=== PATIENT | female | born 1945 | race Caucasian/White ===

== ENCOUNTER → 2018-06-22 | Outpatient (CLI) | payer MEDICARE, BC | LOC: M RAD 16:10 | DX: R12 Heartburn (principal); K44.9 Diaphragmatic hernia without obstruction or gangrene; J84.10 Pulmonary fibrosis, unspecified | CPT/HCPCS: 71250 ==

== ENCOUNTER → 2019-02-19 | Outpatient (REF) ==
[2019-02-19 14:00] LABS: ALBUMIN 2.6 GM/DL (3.2-5.2); ALT/SGPT 21 U/L (12-78); BILIRUBIN,TOTAL 0.4 MG/DL (0.2-1.0); BLOOD UREA NITROGEN 8 MG/DL (7-18); CALCIUM LEVEL 7.7 MG/DL (8.8-10.2); CARBON DIOXIDE LEVEL 31 MEQ/L (21-32); CHLORIDE LEVEL 103 MEQ/L (98-107); CREATININE FOR GFR 0.73 MG/DL (0.55-1.30); GLOMERULAR FILTRATION RATE > 60.0 (>39); GLUCOSE, FASTING 97 MG/DL (70-100); MAGNESIUM LEVEL 1.8 MG/DL (1.8-2.4); POTASSIUM SERUM 3.2 MEQ/L (3.5-5.1); SODIUM LEVEL 142 MEQ/L (136-145); TOTAL PROTEIN 5.1 GM/DL (6.4-8.2)
== END ==
LOC: M LAB REF 05:32
DX: Z00.00 Encounter for general adult medical examination without abnormal findings (principal)

== ENCOUNTER → 2021-01-30 | Outpatient (CLI) | payer MEDICARE, BC ==
--- NOTE | 2021-01-30 12:42 | REP ---
INDICATION: NICOTINE DEPEND. COMPARISON: 09/05/2019 and 01/23/2020 TECHNIQUE: Axial noncontrast images from the thoracic inlet to the upper abdomen using low-dose lung screening technique (LDCT). As per the protocol only lung window images were sent to the read station for interpretation FINDINGS: There is stable appearing biapical pleuroparenchymal scarring. There is stable fibrotic change in the left lower lobe. There is a minimal inferior lingular density. There is cylindrical bronchiectasis status quo. Limited evaluation of the mediastinum and pulmonary [place] show no gross changes. Limited evaluation of the imaged upper abdomen and imaged osseous structures show no gross changes. Note is again made of a large hiatal hernia. IMPRESSION: 1. New inferior lingular density as described above likely representing minimal subsegmental atelectatic change. 2. Other findings as described above. Lung rads category 2 exam <Electronically signed by Lucas Kahn > 01/30/21 [id number]
== END ==
LOC: M RAD 11:22
PROVIDERS: ATTEND Physician Assistant
DX: Z87.891 Personal history of nicotine dependence (principal); Z12.2 Encounter for screening for malignant neoplasm of respiratory organs

== ENCOUNTER → 2021-08-06 | Outpatient (REF) | payer MEDICARE, BC | LOC: M LAB REF 16:56 | PROVIDERS: ATTEND Internal Medicine Nephrology | DX: E83.42 Hypomagnesemia (principal) ==

== ENCOUNTER → 2021-08-16 | Outpatient (CLI) | payer MEDICARE, BC ==
--- NOTE | 2021-08-16 12:46 | REP ---
INDICATION: COPD COMPARISON: 01/30/2021, 06/22/2018 TECHNIQUE: Axial noncontrast images from the thoracic inlet to the upper abdomen with coronal and sagittal reformations. This CT examination was performed using the following dose reduction techniques: Automated exposure control, adjustment of mA and/or kv according to the patient's size, and use of iterative reconstruction technique. FINDINGS: COPD/emphysematous changes with primarily biapical and minimal basilar scarring again noted. Previously identified changes at the inferior aspect of the lingula are again noted and consistent with scarring. No acute consolidation, suspicious nodule or mass. No effusion. No pneumothorax. Tracheobronchial tree is patent. Mediastinum demonstrates large paraesophageal gastric hiatal hernia. Atherosclerotic changes to the thoracic aorta and coronary arteries again noted and essentially stable. No cardiomegaly or pericardial effusion. Nonspecific normal appearing lymph nodes to the mediastinum noted. Surrounding musculoskeletal structures are intact. Limited upper abdomen demonstrates normal bilateral adrenal glands. IMPRESSION: 1. Moderate COPD/emphysematous changes with stable scarring. 2. No acute mediastinal or pleuroparenchymal process appreciated. <Electronically signed by Levy Boswell > 08/16/21 [id number]
== END ==
LOC: M PLAIMG 11:25
PROVIDERS: ATTEND Internal Medicine Pulmonary Disease
DX: J44.9 Chronic obstructive pulmonary disease, unspecified (principal); K45.8 Other specified abdominal hernia without obstruction or gangrene

== ENCOUNTER → 2021-10-18 | Outpatient (REF) | payer MEDICARE, BC | LOC: M LAB REF 13:46 | PROVIDERS: ATTEND Nurse Practitioner Family | DX: D23.71 Other benign neoplasm of skin of right lower limb, including hip (principal) ==

== ENCOUNTER → 2021-11-07 | Outpatient (REF) | payer MEDICARE, BC | LOC: M SFHCDERM 17:20 | PROVIDERS: ATTEND Dermatology | DX: Z51.89 Encounter for other specified aftercare (principal) ==

== ENCOUNTER → 2022-03-24 | Outpatient (CLI) | payer MEDICARE, BC | LOC: M WHC 13:17 | PROVIDERS: ATTEND Nurse Practitioner Family | DX: Z13.820 Encounter for screening for osteoporosis (principal); M85.851 Other specified disorders of bone density and structure, right thigh ==

== ENCOUNTER → 2022-11-04 | Outpatient (CLI) | payer MEDICARE, BC | LOC: M RAD 13:38 | PROVIDERS: ATTEND Internal Medicine Pulmonary Disease | DX: Z87.891 Personal history of nicotine dependence (principal) ==

== ENCOUNTER 2023-09-17 08:02 | Day surgery (SDC) | payer MEDICARE, BC ==
[~2023-09-17] VITALS: Ht 162.6 cm; Wt 61.4 kg
[~2023-09-17 08:02] MED LIST: ALBU2.5V10 NEB; ALEN70TA82 PO; BIOT5TAB3 PO; BREO1INH3; BSS IRRIG/VANCO(10MG)/TOBRA(5MG)/EPINEPH(1:1000-0.5CC)500ML BAG-ORONLY IR ONE; CALCCAP4 PO; CEFUROXIME 1MG/0.1ML INTRACAMERAL INJ As Ordered ONE; CITA20TA6 PO; ERGO500029 PO; GLUCTAB7 PO; INCR1INH; LIDOCAINE 1% SDV 5ML VIAL As Ordered ONE; LIDOCAINE 3.5 % 1ML OPHTH TOPICAL GEL OU ONE; MAGN64TASA PO; OFLOXACIN 0.3 % (OCUFLOX) OPTH SOL 5ML OS ONE; OMEP40CA5 PO; PHENYLEPHRINE 10% OPHTH SOL 5ML OS PRN; POTA-141 PO; PROB1TAB2 PO; RA M500C PO; ROSU5TAB5 PO; SPIR-10 PO; VITA100018 PO
[2023-09-17] MEDS ORDERED: fentaNYL 100 MCG/2 ML INJECTION As Ordered ONE ×2 (08:30→09:21)
[2023-09-17] MEDS ORDERED: MIDAZOLAM INJ 2MG/2ML VIAL As Ordered ONE ×2 (08:30→09:21)
[2023-09-17] MEDS: CYCLOPENTOLATE 1% OPHTH SOLN 2ML BTL OS SCH ×2 (08:35→08:45)
[2023-09-17] MEDS: TROPICAMIDE 1% OPHTH SOLN 15ML OS SCH ×2 (08:35→08:45)
[2023-09-17] MEDS: PHENYLEPHRINE 2.5% OPHTH SOL 2ML OS SCH ×2 (08:35→08:45)
[2023-09-17 10:17] VITALS: BP 152/76; TEMP 98; O2SAT 98
== END 2023-09-17 10:26 | disposition home or self-care (01) ==
LOC: M SDC 08:02
PROVIDERS: ATTEND Ophthalmology
DX: H25.12 Age-related nuclear cataract, left eye (principal); E78.00 Pure hypercholesterolemia, unspecified; J44.9 Chronic obstructive pulmonary disease, unspecified; K21.9 Gastro-esophageal reflux disease without esophagitis; Z87.891 Personal history of nicotine dependence; Z79.899 Other long term (current) drug therapy; Z88.5 Allergy status to narcotic agent; Z88.1 Allergy status to other antibiotic agents; Z90.49 Acquired absence of other specified parts of digestive tract
CPT/HCPCS: 66984; 92015; J0697; J2250; J3010; V2788

== ENCOUNTER 2023-10-29 12:03 | Day surgery (SDC) | payer MEDICARE, BC ==
[~2023-10-29] VITALS: Ht 162.6 cm; Wt 61.2 kg
[~2023-10-29 12:03] MED LIST changes: +BIOT10009 PO; -BREO1INH3; +BREO1INH3 INH; -BSS IRRIG/VANCO(10MG)/TOBRA(5MG)/EPINEPH(1:1000-0.5CC)500ML BAG-ORONLY IR ONE; -CEFUROXIME 1MG/0.1ML INTRACAMERAL INJ As Ordered ONE; -INCR1INH; +INCR1INH INH; -LIDOCAINE 1% SDV 5ML VIAL As Ordered ONE; -LIDOCAINE 3.5 % 1ML OPHTH TOPICAL GEL OU ONE; +MIDAZOLAM INJ 2MG/2ML VIAL As Ordered ONE; -OFLOXACIN 0.3 % (OCUFLOX) OPTH SOL 5ML OS ONE; +PHENYLEPHRINE 10% OPHTH SOL 5ML OD PRN; -PHENYLEPHRINE 10% OPHTH SOL 5ML OS PRN; +VITA500T17 PO
[2023-10-29] MEDS: OFLOXACIN 0.3 % (OCUFLOX) OPTH SOL 5ML OD ONE (12:24)
[2023-10-29] MEDS: PHENYLEPHRINE 2.5% OPHTH SOL 2ML OD SCH (12:25)
[2023-10-29] MEDS: TROPICAMIDE 1% OPHTH SOLN 15ML OD SCH (12:25)
[2023-10-29] MEDS: LIDOCAINE 3.5 % 1ML OPHTH TOPICAL GEL OU ONE (12:25)
[2023-10-29] MEDS: CYCLOPENTOLATE 1% OPHTH SOLN 2ML BTL OD SCH (12:25)
[2023-10-29] MEDS: LIDOCAINE 1% SDV 5ML VIAL As Ordered ONE (13:36)
[2023-10-29] MEDS: CEFUROXIME 1MG/0.1ML INTRACAMERAL INJ As Ordered ONE (13:36)
[2023-10-29] MEDS: BSS IRRIG/VANCO(10MG)/TOBRA(5MG)/EPINEPH(1:1000-0.5CC)500ML BAG-ORONLY As Ordered ONE (13:36)
[2023-10-29 13:53] VITALS: BP 160/73; TEMP 97.8; O2SAT 97
== END 2023-10-29 14:25 | disposition home or self-care (01) ==
LOC: M SDC 12:03
PROVIDERS: ATTEND Ophthalmology
DX: H25.11 Age-related nuclear cataract, right eye (principal); E78.00 Pure hypercholesterolemia, unspecified; J44.9 Chronic obstructive pulmonary disease, unspecified; K21.9 Gastro-esophageal reflux disease without esophagitis; Z87.891 Personal history of nicotine dependence; Z79.899 Other long term (current) drug therapy; Z79.51 Long term (current) use of inhaled steroids
CPT/HCPCS: 66984; 92015; J0697; J2250; V2788

== ENCOUNTER → 2023-12-14 | Outpatient (CLI) | payer MEDICARE, BC ==
[~2023-12-14] MED LIST changes: -MIDAZOLAM INJ 2MG/2ML VIAL As Ordered ONE; -PHENYLEPHRINE 10% OPHTH SOL 5ML OD PRN
== END ==
LOC: M RAD 12:50
PROVIDERS: ATTEND Internal Medicine Pulmonary Disease
DX: Z12.2 Encounter for screening for malignant neoplasm of respiratory organs (principal); Z87.891 Personal history of nicotine dependence

== ENCOUNTER → 2024-09-13 | Outpatient (CLI) | payer MEDICARE, BC ==
[~2024-09-13] MED LIST changes: +ROSU5TAB49 PO; -ROSU5TAB5 PO
== END ==
LOC: M WHC 10:06
PROVIDERS: ATTEND Nurse Practitioner Family
DX: M85.851 Other specified disorders of bone density and structure, right thigh (principal); E55.9 Vitamin D deficiency, unspecified

== ENCOUNTER → 2025-04-25 | Outpatient (REF) | payer MEDICARE, BC | LOC: M LAB REF 16:35 | PROVIDERS: ATTEND Surgery | DX: C44.722 Squamous cell carcinoma of skin of right lower limb, including hip (principal) ==